=== PATIENT | female | born 1980 | race Caucasian/White ===

== ENCOUNTER 2017-05-03 11:41 | Emergency (ER) | payer OTHER ==
[2017-05-03] MEDS ORDERED: HYDROcodone/Acetaminophen 10/325 mg Tablet ONE (12:21)
[2017-05-03] MEDS ORDERED: Amoxicillin/Potassium Clav 875 MG TAB ONE (12:21)
== END 2017-05-03 12:23 | disposition home or self-care (01) ==
LOC: MADERS 11:41
DX: J01.90 Acute sinusitis, unspecified (principal); Z87.891 Personal history of nicotine dependence
CPT/HCPCS: 99282

== ENCOUNTER 2017-08-19 10:33 | Emergency (ER) | payer OTHER ==
[2017-08-19] MEDS ORDERED: Dexamethasone 4 mg/ml Vial ONE (10:50)
== END 2017-08-19 11:20 | disposition home or self-care (01) ==
LOC: MADERS 10:33
DX: L25.3 Unspecified contact dermatitis due to other chemical products (principal); Z87.891 Personal history of nicotine dependence
CPT/HCPCS: 96372; J1100

== ENCOUNTER 2017-11-16 11:36 | Emergency (ER) | payer OTHER ==
[~2017-11-16 11:36] MED LIST: Lidocaine 1% 20 ML MDV ONE
[2017-11-16] MEDS ORDERED: cefTRIAXone\\ROCEPHIN 1 GM VIAL ONE (12:11)
== END 2017-11-16 12:35 | disposition home or self-care (01) ==
LOC: MADERS 11:36
DX: J02.0 Streptococcal pharyngitis (principal); F17.210 Nicotine dependence, cigarettes, uncomplicated; Z79.899 Other long term (current) drug therapy
CPT/HCPCS: 96372; J0696; J2001